=== PATIENT | female | born 1960 | race Caucasian/White ===

== ENCOUNTER 2019-04-28 14:13 | Observation (INO) | payer MEDICARE, MEDICAID ==
[~2019-04-28] VITALS: Ht 167.6 cm; Wt 108.2 kg
[2019-04-28] MEDS ORDERED: LORazepam 2 MG/ML, 1ML IVPush ONE ×2 (14:30→15:00)
[2019-04-28] MEDS ORDERED: SODIUM CHLORIDE FLUSH 10ML SYR IVF ONE (14:30)
[2019-04-28] MEDS ORDERED: LORazepam 2 MG/ML, 1ML ONE (14:55)
--- NOTE | 2019-04-28 14:55 | NUR ---
VO DR ZACARIAS: ATIVAN 2MG IV FOR MRI STAT; MRI WAITING
--- NOTE | 2019-04-28 15:01 | NUR ---
PT TO MRI PER RONI
[2019-04-28 15:11] LABS: BASOPHILS # (AUTO) 0.04 x10^3/uL (0-0.1); BASOPHILS % (AUTO) 1 % (0-1); EOSINOPHILS # (AUTO) 0.02 x10^3/uL (0-0.4); EOSINOPHILS % (AUTO) 0 % (1-7); LYMPHOCYTES % (AUTO) 27 % (22-44); MD NO; MEAN CORPUSCULAR HEMOGLOBIN 31.5 pg (27.0-34.8); MEAN CORPUSCULAR HGB CONC 32.8 g/dL (32.4-35.8); MEAN CORPUSCULAR VOLUME 96.1 fL (80-100); MEAN PLATELET VOLUME 7.3 fL (7.4-10.4); MONOCYTES # (AUTO) 0.58 x10^3/uL (0.2-0.8); MONOCYTES % (AUTO) 7 % (2-9); NEUTROPHILS # (AUTO) 5.62 x10^3/uL (1.8-6.8); NEUTROPHILS % (AUTO) 66 % (42-75); PLATELET COUNT 363 x10^3/uL (130-400); RED BLOOD COUNT 3.73 x10^6/uL (3.82-5.3); RED CELL DISTRIBUTION WIDTH 12.8 % (9.6-15.2)
[2019-04-28 15:13] LABS: ALANINE AMINOTRANSFERASE 20 U/L (12-78); ALBUMIN 3.2 g/dL (3.4-5.0); ANION GAP 3 mmol/L (5-15); CALCIUM 8.5 mg/dL (8.5-10.1); CHLORIDE 112 mmol/L (98-107); CREATININE 1.05 mg/dL (0.55-1.02)
[2019-04-28 15:15] LABS: ALKALINE PHOSPHATASE 99 U/L (45-117); BILIRUBIN,TOTAL 0.2 mg/dL (0.2-1.0); TOTAL PROTEIN 7.2 g/dL (6.4-8.2)
[2019-04-28] MEDS ORDERED: GADOTERATE 10 MMOL/20 ML SYR ONE (15:23)
[2019-04-28 16:00] LABS: HCT (SEDRATE) 35.9 % (34.6-47.8)
[2019-04-28] MEDS ORDERED: MECLIZINE CHEWABLE 25 MG TAB PO ONE (16:00)
[2019-04-28] MEDS ORDERED: MECLIZINE CHEWABLE 25 MG TAB ONE (16:47)
--- NOTE | 2019-04-28 16:51 | NUR ---
INFORMED PT OF MECLIZINE ORDER. PT UPSET. STATES THE DOCTOR TOLD ME TO GATHER MY STUFF AND LEAVE. INFORMED PT THAT THE ADMIT ORDER IS PENDING. PT UNWILLING TO TAKE MECLIZINE UNTIL STATUS CONFIRMED.
--- NOTE | 2019-04-28 17:07 | NUR ---
PT INFORMED, AGAIN, OF PENDING ADMIT (WAS CONFIRMED PER DR ZACARIAS). MECLINZINE GIVEN PER EMAR.
--- NOTE | 2019-04-28 17:29 | NUR ---
REPORT CALLED TO AMISH GOYAL FOR ROOM 344
[2019-04-28] MEDS ORDERED: ATOR20TA37 PO (17:49)
[2019-04-28] MEDS ORDERED: NYSTATIN OINT (17:50)
[2019-04-28] MEDS ORDERED: PRAMIPEXOLE PO (17:50)
[2019-04-28] MEDS ORDERED: LEVO150T5 PO (17:51)
[2019-04-28] MEDS ORDERED: NOVOLOG (17:52)
[2019-04-28] MEDS ORDERED: FLUO20CA23 PO (17:52)
[2019-04-28] MEDS ORDERED: BUSP15TA PO (17:53)
[2019-04-28] MEDS ORDERED: SITA50TA PO (17:53)
[2019-04-28] MEDS ORDERED: ONDA8TAB9 PO (17:54)
[2019-04-28] MEDS ORDERED: INSU100I34 SC (17:54)
[2019-04-28] MEDS ORDERED: OXYC-307 PO (17:55)
[2019-04-28] MEDS ORDERED: DULOXETINE PO (17:55)
[2019-04-28] MEDS ORDERED: PROAIR HFA (17:56)
[2019-04-28] MEDS ORDERED: PREG75CA PO (17:57)
[2019-04-28] MEDS ORDERED: BACL20TA PO (17:57)
[2019-04-28] MEDS ORDERED: HYDR-826 PO (17:58)
[2019-04-28] MEDS ORDERED: ZOLPIDEM PO (17:58)
[2019-04-28] MEDS ORDERED: RANI-467 PO (17:59)
[2019-04-28] MEDS ORDERED: DRISDOL (17:59)
[2019-04-28] MEDS ORDERED: BISACODYL 10 MG SUPP PR PRN (18:00)
[2019-04-28] MEDS ORDERED: ONDANSETRON 2MG/ML, 2ML IVPush PRN (18:00)
[2019-04-28] MEDS ORDERED: ONDANSETRON ODT 4 MG PO PRN (18:00)
[2019-04-28] MEDS ORDERED: DOCUSATE 100 MG CAPSULE PO PRN (18:00)
[2019-04-28] MEDS ORDERED: DEXTROSE 4 GM TAB.CHEW PO PRN (18:00)
[2019-04-28] MEDS ORDERED: ENALAPRILAT 1.25 MG/ML, 2ML IVPush PRN (18:00)
[2019-04-28] MEDS ORDERED: GLUCAGON 1 MG IM PRN (18:00)
[2019-04-28] MEDS ORDERED: NICOTINE 14MG/24 HR PATCH.TD24 TD SCH (18:00)
[2019-04-28] MEDS ORDERED: ACETAMINOPHEN 325 MG TABLET PO PRN (18:00)
[2019-04-28] MEDS ORDERED: LABETALOL 5MG/ML, 20ML IVPush PRN (18:00)
[2019-04-28] MEDS ORDERED: DEXTROSE 50%, 50ML SYRINGE IVPush PRN (18:00)
[2019-04-28] MEDS ORDERED: BUSP5TAB2 PO (18:04)
[2019-04-28] MEDS: LACTATED RINGERS 1,000 ML IV SCH (18:55)
[2019-04-28 19:26] VITALS: BP 114/74
[2019-04-28 19:30] VITALS: BP 107/70
[2019-04-28 19:31] VITALS: BP 103/71
[2019-04-28] MEDS: INSULIN LISPRO 100 UNITS/ML, PEN SQ-INSULIN SCH (20:07)
[2019-04-28] MEDS: SODIUM CHLORIDE FLUSH 10ML SYR IVF SCH (20:07)
[2019-04-28] MEDS: PREGABALIN 75 MG CAPSULE PO SCH (20:17)
[2019-04-28] MEDS: HEPARIN 5,000 UNITS/ML, 1ML SQ SCH (20:18)
[2019-04-28] MEDS ORDERED: ATORVASTATIN 40 MG TABLET PO SCH (21:00)
[2019-04-28] MEDS: MECLIZINE 25 MG TABLET PO PRN (22:43)
[2019-04-29] VITALS (7 sets, daily range): BP systolic 103–145; BP diastolic 71–85
[2019-04-29] MEDS: HEPARIN 5,000 UNITS/ML, 1ML SQ SCH ×2 (05:32→12:22)
[2019-04-29 06:00] LABS: BASOPHILS # (AUTO) 0.05 x10^3/uL (0-0.1); BASOPHILS % (AUTO) 1 % (0-1); EOSINOPHILS # (AUTO) 0.05 x10^3/uL (0-0.4); EOSINOPHILS % (AUTO) 1 % (1-7); LYMPHOCYTES # (AUTO) 2.46 x10^3/uL (1-3.4); LYMPHOCYTES % (AUTO) 32 % (22-44); MD NO; MEAN CORPUSCULAR HEMOGLOBIN 31.8 pg (27.0-34.8); MEAN CORPUSCULAR HGB CONC 33.4 g/dL (32.4-35.8); MEAN CORPUSCULAR VOLUME 95.2 fL (80-100); MONOCYTES % (AUTO) 6 % (2-9); NEUTROPHILS # (AUTO) 4.73 x10^3/uL (1.8-6.8); NEUTROPHILS % (AUTO) 61 % (42-75); PLATELET COUNT 310 x10^3/uL (130-400); RED BLOOD COUNT 3.72 x10^6/uL (3.82-5.3); RED CELL DISTRIBUTION WIDTH 12.8 % (9.6-15.2)
[2019-04-29] MEDS ORDERED: ASPIRIN 81 MG TABLET EC PO SCH (06:00)
[2019-04-29 06:01] LABS: ANION GAP 7 mmol/L (5-15); CALCIUM 8.7 mg/dL (8.5-10.1); CHLORIDE 111 mmol/L (98-107)
[2019-04-29 06:28] LABS: CREATININE 1.03 mg/dL (0.55-1.02)
[2019-04-29] MEDS: INSULIN LISPRO 100 UNITS/ML, PEN SQ-INSULIN SCH ×2 (07:00→12:23)
[2019-04-29] MEDS: SODIUM CHLORIDE FLUSH 10ML SYR IVF SCH (09:00)
[2019-04-29] MEDS ORDERED: CYANOCOBALAMIN 1,000 MCG/ML, 1ML IM SCH (09:00)
[2019-04-29] MEDS ORDERED: LEVOTHYROXINE 150 MCG TABLET PO SCH (09:00)
[2019-04-29] MEDS: LACTATED RINGERS 1,000 ML IV SCH (09:09)
[2019-04-29] MEDS: PREGABALIN 75 MG CAPSULE PO SCH (09:09)
[2019-04-29] MEDS: MECLIZINE 25 MG TABLET PO PRN (15:38)
[2019-04-29] MEDS ORDERED: MECL-101 PO (15:53)
[2019-04-29] MEDS ORDERED: LEVO125T PO (15:53)
[2019-04-29] MEDS ORDERED: CYAN3000 SL (15:54)
[2019-04-30] MEDS ORDERED: LEVOTHYROXINE 125 MCG TABLET PO SCH (06:00)
== END 2019-04-29 16:00 | disposition home or self-care (01) ==
LOC: ED 16:25 → EDIP 16:31 → INTOOBSV 16:31 → ED 17:30 → 3N 18:04
PROVIDERS: ADMIT Family Medicine; ATTEND Family Medicine
DX: I10 Essential (primary) hypertension (principal); R42 Dizziness and giddiness; F44.9 Dissociative and conversion disorder, unspecified; E11.69 Type 2 diabetes mellitus with other specified complication; E66.01 Morbid (severe) obesity due to excess calories; J44.9 Chronic obstructive pulmonary disease, unspecified; R91.1 Solitary pulmonary nodule; E53.8 Deficiency of other specified B group vitamins; I69.354 Hemiplegia and hemiparesis following cerebral infarction affecting left non-dominant side; E89.0 Postprocedural hypothyroidism; F17.210 Nicotine dependence, cigarettes, uncomplicated; Z79.899 Other long term (current) drug therapy; Z79.82 Long term (current) use of aspirin; Z79.4 Long term (current) use of insulin; Z85.820 Personal history of malignant melanoma of skin
CPT/HCPCS: 36415; 70553; 80048; 80053; 82607; 82962; 83036; 83735; 84439; 84443; 85025; 85651; 96361; 96372; 96374; 96375; 97162; 97165; 99285; A9575; G0378; J1644; J1815; J2060; J2405; J7120